=== PATIENT | male | born 1935 | race Caucasian/White ===

== ENCOUNTER → 2019-09-30 10:04 | Outpatient (CLI) | payer MEDICARE, OTHER ==
[2011-03-07 10:37] VITALS: BMI 32.8
== END | disposition home or self-care (01) ==
LOC: D.CT 10:04
PROVIDERS: ATTEND Family Medicine
DX: I70.213 Atherosclerosis of native arteries of extremities with intermittent claudication, bilateral legs (principal)

== ENCOUNTER 2019-11-07 11:16 | Outpatient (CLI) | payer MEDICARE, OTHER ==
[~2019-11-07] VITALS: Ht 177.8 cm; Wt 84.1 kg
--- NOTE | ~2019-11-07 | HEMODYNAMI ---
PATIENT:YEMI SANZ MEDICAL RECORD: [id number] : 39 LOCATION:[facility] ADMISSION DATE: 11/07/19 Generatedon:11/07/201915:11 Patient name: YEMI SANZ Patient #: [id number] SSN: DO B: 1935 Date of study: 11/07/2019 Page: Of Hemodynamic Procedure Report Patient Data Patient Demographics Procedure consent was obtained First Name: YEMI Gender: Male Last Name: YVON : 1935 Middle Initial: RAJANI Age: 84 year(s) Patient #: [id number] Race: Unknown Additional ID: [id number] Contact details [address]: [address] [place] [address] State: [place] City: [place] Zip code: [address] Past Medical History Allergies Allergen Reaction Date Comments Reported Other allergy 11/07/2019 hydrocodone, elavil,sulfa, Codeine 11/07/2019 Admission Admission Data Admission Date: 11/07/2019 Admission Time: 11:16 Procedure Procedure Types Cath Procedure Peripheral Cath Diagnostic Procedure Clinical Case Manager Peripheral Procedures Abd/Extremity Extremities Left Lower Ext Arterio Procedure Description Procedure Date Procedure Date: 11/07/2019 Procedure Start Time: 14:17 Procedure Staff Name Function Bj Larson MD Performing Physician Haven Urbano RT Commission Associate Raudel RITCHIE RN Nurse Kasey Bar RN Nurse Willis Patrick RT Scrub Procedure Data Cath Procedure Fluoroscopy Diagnostic fluoroscopy Total fluoroscopy Time: 8.7 time: 8.7 min min Diagnostic fluoroscopy Total fluoroscopy dose: 239 dose: 239 mGy mGy Contrast Material Contrast Material Type Amount (ml) Isovue 300 80 Entry Location Entry Primary Successful Side Size Upsize Upsize Entry Closure Succes sful Closure Location (Fr) 1 (Fr) 2 (Fr) Remarks Device Remarks Femoral Right Mynx artery Supervisor Can[employer] 6Fr/7Fr Diagnostic catheters Device Type Used For End Catheter Placement DIAGNOSTIC IMT 5Fr Catheter ([id number]) Procedure Medications Medication Administration Route Dosage Lidocaine 1% added to field 20 Heparin Flush Bag added to field 2 bags (1000units/500ml NS) Versed I.V. 1 mg Fentanyl I.V. 25 mcg Heparin Bolus I.V. 5000 units Fentanyl I.V. 25 mcg Versed I.V. 1 mg Fentanyl I.V. 50 mcg Nitroglycerin IC/IA I.A. 250 mcg Hemodynamics Rest Heart Rate: 57 (bpm) Snapshots Pre Cath Intra NCS Post Cath Vital Signs Time Heart Resp SPO2 etCO2 NIBP (mmHg) Rhythm Pain Status Sedation Rate (ipm) (%) (mmHg) Level (bpm) 14:07:00 57 13 100 35.9 145/76(107) NSR 2 (11) , 9(A) Uncomfortable 14:11:14 57 8 34.4 156/78(133) NSR 2 (11) , 9(A) Uncomfortable 14:16:14 60 14 89 35.1 Measuring NSR 2 (11) , 9(A) Uncomfortable 14:16:22 60 33 90 33.6 155/66(146) NSR 2 (11) , 9(A) Uncomfortable 14:20:44 57 12 99 35.1 162/70(100) NSR 2 (11) , 9(A) Uncomfortable 14:25:43 57 22 98 35.1 107/90(100) NSR 0 (11) , No 10(A) pain 14:30:42 57 24 99 30.6 Measuring NSR 0 (11) , No 10(A) pain 14:30:48 59 23 99 0 150/75(125) NSR 0 (11) , No 10(A) pain 14:35:02 60 22 100 38.1 162/144(157) NSR 0 (11) , No 10(A) pain 14:39:22 58 21 96 0 151/78(95) NSR 0 (11) , No 10(A) pain 14:43:38 60 10 98 18.7 148/82(132) NSR 0 (11) , No 10(A) pain 14:48:37 60 19 99 36.6 Measuring NSR 0 (11) , No 10(A) pain 14:49:53 70 15 99 31.4 172/83(137) NSR 0 (11) , No 10(A) pain 14:54:19 63 14 98 27.6 150/81(128) NSR 0 (11) , No 10(A) pain 14:58:37 61 10 97 17.2 151/77(129) NSR 0 (11) , No 10(A) pain 15:02:55 59 10 98 39.6 159/79(95) NSR 0 (11) , No 10(A) pain 15:07:19 60 12 98 23.1 146/72(119) NSR 0 (11) , No 10(A) pain 15:11:29 61 20 98 38.9 150/84(125) NSR 0 (11) , No 10(A) pain Medications Time Medication Route Dose Verified Delivered Reason Notes Effectiveness by by 14:05:57 Lidocaine 1% added 20ml Bj Minner used for to vial Marsha RITCHIE procedure field MD RENEE 14:06:07 Heparin Flush added 2 Bj Minner used for Bag to bags Marsha RITCHIE procedure (1000units/500ml field MD RENEE NS) 14:21:05 Versed I.V. 1 mg Bj Starks for sedation Marsha RITCHIE MD, RN 14:21:13 Fentanyl I.V. 25 Bj Starks for sedation mcg Marsha RITCHIE MD, RN 14:25:18 Heparin Bolus I.V. 5000 Bj Leonr for units Marsha martin MD, RN 14:25:24 Fentanyl I.V. 25 Bj Starks for sedation mcg Marsha RITCHIE MD, RN 14:36:36 Versed I.V. 1 mg Bj Parks for sedation Marsha Bar RN, MD 14:36:47 Fentanyl I.V. 50 Bj Parks for sedation mcg Marsha Bar RN, MD 14:50:30 Nitroglycerin I.A. 250 Bj Lorenzo IC/IA mcg Marsha Larson MD, MD Procedure Log Time Note 13:08:13 Use device set IR Diagnostic 13:08:18 Tegaderm 4 x 4 (1626W) opened to sterile field. 13:08:19 Bag Decanter (2001S) opened to sterile field. 13:08:20 Sterile Angiographic Pack opened to sterile field. 13:08:22 HOWARD 260 wire ([id number]) opened to sterile field. 13:08:23 BENTSON 145cm wire ([id number]) opened to sterile field. 13:08:24 Micropuncture VSI 4FR kit opened to sterile field. 13:08:26 SHEATH 5FR Rincon ([id number]) opened to sterile field. 13:36:51 A DIAGNOSTIC IMT 5Fr Catheter ([id number]) was advanced over the wire an d used for . 13:36:55 - 13:51:50 Time tracking: Regular hours (M-F 7:00 - 5:00) 13:51:58 Plan of Care:Hemodynamics will remain stable., Cardiac rhythm will remain stable., Comfort level will be maintained., Respiratory function will remain adequate., Patient/ family verbilizes understanding of procedure., Procedure tolerated without complication., Recovers from procedure without complications.. 13:52:05 Patient received from Outpatients to IR Alert and oriented. Tansferred to table in Supine position. 13:52:07 Signed procedure consent form obtained from patient. 13:52:14 H&P Date Dictated: 11/07/2019 Within 30 days and on chart., H&P Addendum completed by physician on day of procedure. (MUST COMPLETE FOR ALL OUTPATIENTS). 13:52:16 Pre-procedure instructions explained to patient. 13:52:16 Pre-op teaching completed and patient verbalized understanding. 13:52:20 Family in patients room. 13:52:23 Patient NPO since Midnight. 13:54:57 Patient allergic to Other allergyhydrocodone, elavil,sulfa, 13:55:10 Patient allergic to Codeine 13:55:23 Is the patient allergic to Iodine/contrast media? No. 13:55:27 Is patient on blood thinner?Yes 13:55:32 ACC The patient was administered the following blood thiners within the last 24 hours: ACCAspirin 13:55:36 Patient diabetic? No. 13:55:41 - 13:55:42 ----Pre-sedation anethsthesia assessment.---- 13:55:46 Previous problem with sedation/anesthesia? No ? 13:55:49 Snore? Yes 13:55:51 Sleep apnea? No 13:55:55 Deviated septum? No 13:55:57 Opens mouth fully? Yes 13:55:59 Sticks out tongue? Yes 13:56:02 Airway obstruction? No ? 13:56:10 Dentures? Yes secure 13:56:32 Pre procedure: right dorsailis pedis pulse Doppler 13:56:36 Pre procedure: left dorsailis pedis pulse 1+ Palpable, but thready & weak; easily obliterated 13:56:41 Pre procedure: right posterior tibial pulse Doppler 13:56:46 Pre procedure: left posterior tibial pulse Doppler 13:57:07 Right groin area was prepped with chlora-prep and draped in sterile fashion 13:57:09 - 14:05:56 ECG and BP/O2 sat monitors applied to patient. 14:05:57 Lidocaine 1% 20ml vial added to field was administered by Raudel Carey RN; used for procedure; Verbal order read back and verified. 14:05:57 Vital chart was started 14:05:58 Baseline sample Acquired. 14:05:59 Full Disclosure recording started 14:06:01 - 14:06:07 Heparin Flush Bag (1000units/500ml NS) 2 bags added to field was administered by Raudel RITCHIE RN; used for procedure; Verbal order read back and verified. 14:06:13 - 14:08:16 ROADRUNNER .035 260 glide wire ([id number]) opened to sterile field. 14:08:32 CXI SUPPORT .035 135 CM STR catheter ([id number]) opened to sterile field. 14:09:12 - 14:16:14 Physician arrived 14:16:15 --------ALL STOP TIME OUT------ 14:16:16 Final Timeout: patient, procedure, and site verified with staff and physician. All members of the team are in agreement. 14:16:50 Fire Safety Assessment: A--An alcohol-based skin anteseptic being used preoperatively., C--Open oxygen or nitrous oxide is being used. 14:16:58 2) 60-89 Mildly reduced kidney function, and other findings (as for stage 1) point to kidney disease. 14:17:04 Procedure started. 14:17:09 Local anesthetic to right femoral artery with Lidocaine 1% by Bj Larson MD.INITIAL ACCESS ONLY 14:17:13 Arterial access obtained using ultrasound guidance. 14:21:05 Versed 1 mg I.V. was administered by Raudel RITCHIE RN; for sedation; Verbal order read back and verified. 14:21:13 Fentanyl 25 mcg I.V. was administered by Raudel RITCHIE RN; for sedation; Verbal order read back and verified. 14:25:18 Heparin Bolus 5000 units I.V. was administered by Raudel RITCHIE RN; fo r anticoagulation; Verbal order read back and verified. 14:25:24 Fentanyl 25 mcg I.V. was administered by Raudel RITCHIE RN; for sedation; Verbal order read back and verified. 14:32:18 SHEATH 6FR Destination (RSR01) opened to sterile field. 14:33:56 CHOICE PT Extra Support J 300cm guide wire ([id number]) opened to steril e field. 14:34:44 Hawkone Medium Atherectomy System (H1-M) opened to sterile field. 14:36:36 Versed 1 mg I.V. was administered by Kasey Bar RN; for sedation; Verbal order read back and verified. 14:36:47 Fentanyl 50 mcg I.V. was administered by Kasey Bar RN; for sedation ; Verbal order read back and verified. 14:38:37 INFLATOR BasixTOUCH (RM0090) opened to sterile field. 14:47:00 Inflate balloon Inflation number: 1 A IN.PACT Admiral 6 x 120 x 130 DCB Balloon ([id number]) was prepped and advanced across the Undefined1 , then inflated . 14:50:30 Nitroglycerin IC/IA 250 mcg I.A. was administered by Bj Larson MD; ; Verbal order read back and verified. 15:04:[address] USHER 6FR/7FR ([id number]) opened to sterile field. 15:04:59 A sheath was inserted into the Right Femoral artery 15:04:59 Sheath removed intact; hemostasis achieved with Mynx Supervisor [employer] 6Fr/7Fr to th e Right Femoral artery. 15:08:29 Procedure ended.(Physican Out) 15:08:33 Fluoroscopy time 08.70 minutes. 15:08:39 Fluoroscopy dose: 239 mGy 15:08:39 Flurop Dose total: 239 15:08:45 Contrast amount:Isovue 300 80ml. 15:08:48 Procedure and supply charges have been captured, reviewed, submitted an d are correct. 15:10:54 Report given to Outpatients. 15:11:53 Vital chart was stopped Intervention Summary Intervention Notes Time ActionType Lesion and Equipment Used Action# Pressure Duration Attributes 14:47:00 Inflate Undefined1 IN.PACT 1 0 00:00 balloon Admiral 6 x 120 x 130 DCB Balloon ([id number]) Device Usage Item Name Manufacture Quantity Catalog Number Hospital Part Current M inimal Lot# / Charge Number Stock Stock Serial# Code Tegaderm 4 x 4 3M 1 1626W [id number] [id number] 5 (1626W) Bag Decanter Microtek 1 2001S 175334 79297 708165 5 () [employer] Inc[employer] Sterile Cardinal 1 [id number] 986146 258611 5 Angiographic Health Pack HOWARD 260 wire [employer] 1 [id number] 561343 95222 723114 5 ([id number]) BENTSON 145cm [employer] 1 S97155 001579 576225 5 wire ([id number]) Micropuncture VSI VASCULAR 1 7266V 711413 468489 5 VSI 4FR kit SOLUTIONS SHEATH 5FR Terumo 1 ZVU763 760611 766613 642520 5 Rincon (WBM102) DIAGNOSTIC IMT [place] 1 [id number] 237760 390744 67558 5 5Fr Catheter Scientific ([id number]) ROADRUNNER [employer] 1 S37049 469270 231387 966426 5 .035 260 glide wire (L77308) CXI SUPPORT [employer] 1 P12162 736226 993178 403382 5 .035 135 CM STR catheter (N40876) SHEATH 6FR Terumo 1 RSR01 472184 51263 137995 5 Destination (RSR01) CHOICE PT [place] 1 [id number] 842653 009764 385681 5 Extra Support Achieved.co J 300cm guide wire ([id number]) Hawkone Medium Medtronic 1 H1-M 103360 47327237 5 Atherectomy System (H1-M) INFLATOR Merit 1 WB2961 904499 930468 852602 5 Active Scaler (QS8225) IN.PACT Medtronic 1 [id number] 399938 137409 743120 5 Admiral 6 x 120 x 130 DCB Balloon ([id number]) MYNX COURT USHER Access 1 JH6730 535014 362539 5 6FR/7FR Closure (TN9948) Signature Audit [place] Stage Time Signature Unsigned Intra-Procedure 11/07/2019 Haven Urbano 3:11:49 PM RT(R) [facility] [address] [place] [address]
[2019-11-07 11:46] LABS: HEMOGLOBIN 14.5 g/dL (13.5-17.5); LYMPHOCYTES 31.6 % (15-50); MCH 28.7 pg (26.0-34.0); MCV 87.1 fL (80.0-100.0); MEAN PLATELET VOLUME 9.5 fL (7.4-10.4); NEUTROPHILS 63.2 % (40-80); PLATELET COUNT 153 10x3/uL (130-400); RBC 5.05 10x6/uL (4.20-6.10); RDW 13.4 % (11.5-14.5); WBC 7.6 10x3/uL (4.8-10.8)
[2019-11-07 11:50] LABS: CALC OSMOLALITY 282 mosm/kg (275-300); CALCIUM 8.8 mg/dL (8.5-10.1); CARBON DIOXIDE 28.3 mmol/L (21.0-32.0); CHLORIDE - SERUM 108 mmol/L (98-107); GLUCOSE 91 mg/dL (74-106); POTASSIUM - SERUM 4.6 mmol/L (3.5-5.1); SODIUM 141 mmol/L (136-145); UREA NITROGEN 18 mg/dL (7-18); eGFR NON AFRICAN AMERICAN 76 mL/min (90-120)
[2019-11-07 12:05] LABS: APTT 28.8 SECONDS (22.8-39.4); INR 0.96 (0.85-1.17); PROTIME 12.7 SECONDS (11.6-15.0)
[2019-11-07] MEDS ORDERED: PRAVACHOL40 MG PO (13:24)
[2019-11-07] MEDS ORDERED: ASPIRIN325 MG PO (13:25)
[2019-11-07] MEDS ORDERED: NEURONTIN 300300 MG PO (13:25)
[2019-11-07 13:46] VITALS: BP 144/65; Ht 177.8 cm; Wt 84.1 kg
--- NOTE | 2019-11-07 15:41 | NUR ---
1530 SEE POST PROCEDURE CHECKLIST FOR VITAL SIGN TRENDS. AT SIDE. TIME FRAME FOR DISCHARGE GIVEN. WATER LEFT AT BEDSIDE.
== END 2019-11-07 20:00 | disposition home or self-care (01) ==
LOC: D.SP 11:16 → D.RAD 13:00 → D.SP 20:00
PROVIDERS: ATTEND Radiology Diagnostic Radiology
DX: I70.211 Atherosclerosis of native arteries of extremities with intermittent claudication, right leg (principal); E78.5 Hyperlipidemia, unspecified; G62.9 Polyneuropathy, unspecified